=== PATIENT | female | born 1935 | race Caucasian/White ===

== ENCOUNTER → 2017-04-08 | Outpatient (CLI) | payer MEDICARE, OTHER ==
[2017-04-08 09:40] LABS: ALT 29 U/L (9-52); AST 15 U/L (14-36); Alkaline Phosphatase 62 U/L (38-126); Anion Gap 12 mmol/L; Blood Urea Nitrogen 21 mg/dL (7-17); Carbon Dioxide 30 mmol/L (22-30); Chloride 100 mmol/L (98-107); Cholesterol 155 mg/dL (<200); Glucose 138 mg/dL (74-99); HDL Cholesterol 48 mg/dL (40-60); Non-African American GFR(MDRD) 53 (>60 ml/min/1.73 sqM); Potassium 4.1 mmol/L (3.5-5.1); Sodium 142 mmol/L (137-145); Total Bilirubin 0.6 mg/dL (0.2-1.3); Total Protein 7.1 g/dL (6.3-8.2); Triglycerides 157 mg/dL (<150)
== END | disposition home or self-care (01) ==
LOC: LABWHC1 09:00
PROVIDERS: ATTEND Internal Medicine Endocrinology, Diabetes & Metabolism
DX: E11.65 Type 2 diabetes mellitus with hyperglycemia (principal); Z86.39 Personal history of other endocrine, nutritional and metabolic disease
CPT/HCPCS: 36415; 80053; 80061; 83970

== ENCOUNTER 2017-09-29 15:48 | Inpatient (IN) | payer MEDICARE, OTHER ==
[2017-09-29] MEDS ORDERED: IPRATROPIUM-ALBUTEROL 3 ML NEB INHALATION STA (15:58)
[2017-09-29] MEDS ORDERED: SODIUM CHLORIDE 0.9% 500 ML IV ONE (15:59)
[2017-09-29] MEDS ORDERED: ACETAMINOPHEN TAB 500 MG TAB PO STA (15:59)
--- NOTE | 2017-09-29 16:02 | ED ---
General Adult HPI - General Stated complaint: Flu symptoms Time Seen by Provider: 09/29/17 15:51 Source: patient, EMS, RN notes reviewed, old records reviewed - History of Present Illness Initial comments: 81-year-old female presents for evaluation of cough and dyspnea. Patient has had symptoms for approximately 2-3 days. She has had diffuse body aches and myalgias. Denies any abdominal pain. Denies chest pain. Patient has had rhinorrhea. Cough is dry in nature. Patient complains of fever and chills. She has had nausea and dry heaving, no significant vomiting. Past medical history diabetes, she states her blood sugar has been running high but she has not been able to eat anything for the past several days and has not taken her insulin. No history of COPD or heart failure. - Related Data Home Medications Medication Instructions Recorded Confirmed Alendronate Sodium [Fosamax] 70 mg PO MIJARES 09/29/17 09/29/17 Cholecalciferol [Vitamin D3] 1,000 unit PO DAILY 09/29/17 09/29/17 Hydrochlorothiazide [Hydrodiuril] 50 mg PO DAILY 09/29/17 09/29/17 Losartan [Cozaar] 50 mg PO DAILY 09/29/17 09/29/17 Metoprolol Tartrate [Lopressor] 50 mg PO DAILY 09/29/17 09/29/17 amLODIPine [Norvasc] 5 mg PO BID 09/29/17 09/29/17 Allergies Allergy/AdvReac Type Severity Reaction Status Date / Time codeine Allergy Rash/Hives Verified 09/29/17 17:18 Sulfa (Sulfonamide Allergy Rash/Hives Verified 09/29/17 17:18 Antibiotics) Review of Systems ROS Statement: Those systems with pertinent positive or pertinent negative responses have been documented in the HPI. ROS Other: All systems not noted in ROS Statement are negative. General Exam General appearance: alert, in no apparent distress Head exam: Present: atraumatic, normocephalic Eye exam: Present: normal appearance, PERRL ENT exam: Present: mucous membranes dry Neck exam: Present: normal inspection. Absent: tenderness, meningismus Respiratory exam: Present: wheezes. Absent: respiratory distress Cardiovascular Exam: Present: normal rhythm, tachycardia GI/Abdominal exam: Present: soft. Absent: distended, tenderness Extremities exam: Present: normal inspection, normal capillary refill. Absent: pedal edema Back exam: Present: normal inspection, full ROM. Absent: tenderness Neurological exam: Present: alert, oriented X3, CN II-XII intact. Absent: motor sensory deficit Psychiatric exam: Present: normal affect, normal mood Skin exam: Present: warm, dry, intact. Absent: cyanosis, diaphoretic Course Vital Signs 09/29/17 09/29/17 09/29/17 15:56 16:23 16:43 Temperature 102 F H Pulse Rate 113 H 108 H 100 Respiratory 27 H 28 H Rate Blood Pressure 168/104 O2 Sat by Pulse 94 L 97 Oximetry 09/29/17 09/29/17 16:57 17:48 Temperature 101.6 F H Pulse Rate 114 H 97 Respiratory 22 Rate Blood Pressure 157/78 O2 Sat by Pulse 98 Oximetry EKG Findings - EKG Comments: EKG Findings:: EKG shows sinus tachycardia with frequent PVCs, ventricular rate 107, OK interval 162, QRS duration 84, QTC 469, there is ST segment depression in V5 and V6 as well as T-wave inversion in V6. Medical Decision Making - Medical Decision Making 81-year-old female presenting with signs and symptoms consistent with influenza. Influenza testing is positive. EKG is obtained does show some ST segment depression and T-wave inversion in the lateral precordium. Patient is chest pain-free. She is not had any chest pain in the past several days. Laboratory studies reveal mild white blood cell count of 12.3, hemoglobin 13.1, creatinine 1.1, mild lactic acid of 2.8, troponin is 0.029, BNP 5180. Patient has no history of heart failure or CAD. EKG does show changes compared with EKG in August 2014. This is likely related to stress secondary to influenza. Chest x-ray shows mild pulmonary vascular congestion. Echo will be obtained, patient is started on heparin, serial troponins will be ordered. An cardiology will be placed on consult. Diagnosis: Influenza A, non-ST segment elevated AR, concern for new onset heart failure. - Lab Data Result diagrams: 09/29/17 16:23 09/29/17 16:23 Lab Results 09/29/17 09/29/17 09/29/17 Range/Units 16:23 16:23 16:23 WBC (3.8-10.6) k/uL RBC (3.80-5.40) m/uL Hgb (11.4-16.0) gm/dL Hct (34.0-46.0) % MCV (80.0-100.0) fL MCH (25.0-35.0) pg MCHC (31.0-37.0) g/dL RDW (11.5-15.5) % Plt Count (150-450) k/uL Neutrophils % % Lymphocytes % % Monocytes % % Eosinophils % % Basophils % % Neutrophils # (1.3-7.7) k/uL Lymphocytes # (1.0-4.8) k/uL Monocytes # (0-1.0) k/uL Eosinophils # (0-0.7) k/uL Basophils # (0-0.2) k/uL PT (9.0-12.0) sec INR (<1.2) APTT (22.0-30.0) sec Sodium (137-145) mmol/L Potassium (3.5-5.1) mmol/L Chloride (98-107) mmol/L Carbon Dioxide (22-30) mmol/L Anion Gap mmol/L BUN (7-17) mg/dL Creatinine (0.52-1.04) mg/dL Est GFR (MDRD) Af Amer (>60 ml/min/1.73 sqM) Est GFR (MDRD) Non-Af (>60 ml/min/1.73 sqM) Glucose (74-99) mg/dL Plasma Lactic Acid Tk 2.8 H* (0.7-2.0) mmol/L Calcium (8.4-10.2) mg/dL Magnesium (1.6-2.3) mg/dL Total Bilirubin (0.2-1.3) mg/dL AST (14-36) U/L ALT (9-52) U/L Alkaline Phosphatase (38-126) U/L Total Creatine Kinase 1312 H (30-135) U/L CK-MB (CK-2) 3.3 H* (0.0-2.4) ng/mL CK-MB (CK-2) Rel Index 0.3 Troponin I 0.029 (0.000-0.034) ng/mL NT-Pro-B Natriuret Pep pg/mL Total Protein (6.3-8.2) g/dL Albumin (3.5-5.0) g/dL Influenza Type A RNA Detected H (Not Detectd) Influenza Type B (PCR) Not Detected (Not Detectd) 09/29/17 09/29/17 09/29/17 Range/Units 16:23 16:23 16:23 WBC 12.3 H (3.8-10.6) k/uL RBC 4.70 (3.80-5.40) m/uL Hgb 13.1 (11.4-16.0) gm/dL Hct 40.7 (34.0-46.0) % MCV 86.7 (80.0-100.0) fL MCH 28.0 (25.0-35.0) pg MCHC 32.3 (31.0-37.0) g/dL RDW 14.8 (11.5-15.5) % Plt Count 334 (150-450) k/uL Neutrophils % 89 % Lymphocytes % 5 % Monocytes % 5 % Eosinophils % 1 % Basophils % 0 % Neutrophils # 11.0 H (1.3-7.7) k/uL Lymphocytes # 0.6 L (1.0-4.8) k/uL Monocytes # 0.6 (0-1.0) k/uL Eosinophils # 0.1 (0-0.7) k/uL Basophils # 0.0 (0-0.2) k/uL PT (9.0-12.0) sec INR (<1.2) APTT (22.0-30.0) sec Sodium 133 L (137-145) mmol/L Potassium 4.1 (3.5-5.1) mmol/L Chloride 96 L (98-107) mmol/L Carbon Dioxide 23 (22-30) mmol/L Anion Gap 14 mmol/L BUN 26 H (7-17) mg/dL Creatinine 1.10 H (0.52-1.04) mg/dL Est GFR (MDRD) Af Amer 58 (>60 ml/min/1.73 sqM) Est GFR (MDRD) Non-Af 48 (>60 ml/min/1.73 sqM) Glucose 328 H (74-99) mg/dL Plasma Lactic Acid Tk (0.7-2.0) mmol/L Calcium 9.4 (8.4-10.2) mg/dL Magnesium 1.9 (1.6-2.3) mg/dL Total Bilirubin 0.5 (0.2-1.3) mg/dL AST 44 H (14-36) U/L ALT 28 (9-52) U/L Alkaline Phosphatase 63 (38-126) U/L Total Creatine Kinase (30-135) U/L CK-MB (CK-2) (0.0-2.4) ng/mL CK-MB (CK-2) Rel Index Troponin I (0.000-0.034) ng/mL NT-Pro-B Natriuret Pep 5180 pg/mL Total Protein 7.1 (6.3-8.2) g/dL Albumin 3.9 (3.5-5.0) g/dL Influenza Type A RNA (Not Detectd) Influenza Type B (PCR) (Not Detectd) 09/29/17 Range/Units 16:23 WBC (3.8-10.6) k/uL RBC (3.80-5.40) m/uL Hgb (11.4-16.0) gm/dL Hct (34.0-46.0) % MCV (80.0-100.0) fL MCH (25.0-35.0) pg MCHC (31.0-37.0) g/dL RDW (11.5-15.5) % Plt Count (150-450) k/uL Neutrophils % % Lymphocytes % % Monocytes % % Eosinophils % % Basophils % % Neutrophils # (1.3-7.7) k/uL Lymphocytes # (1.0-4.8) k/uL Monocytes # (0-1.0) k/uL Eosinophils # (0-0.7) k/uL Basophils # (0-0.2) k/uL PT 10.3 (9.0-12.0) sec INR 1.1 (<1.2) APTT 22.1 (22.0-30.0) sec Sodium (137-145) mmol/L Potassium (3.5-5.1) mmol/L Chloride (98-107) mmol/L Carbon Dioxide (22-30) mmol/L Anion Gap mmol/L BUN (7-17) mg/dL Creatinine (0.52-1.04) mg/dL Est GFR (MDRD) Af Amer (>60 ml/min/1.73 sqM) Est GFR (MDRD) Non-Af (>60 ml/min/1.73 sqM) Glucose (74-99) mg/dL Plasma Lactic Acid Tk (0.7-2.0) mmol/L Calcium (8.4-10.2) mg/dL Magnesium (1.6-2.3) mg/dL Total Bilirubin (0.2-1.3) mg/dL AST (14-36) U/L ALT (9-52) U/L Alkaline Phosphatase (38-126) U/L Total Creatine Kinase (30-135) U/L CK-MB (CK-2) (0.0-2.4) ng/mL CK-MB (CK-2) Rel Index Troponin I (0.000-0.034) ng/mL NT-Pro-B Natriuret Pep pg/mL Total Protein (6.3-8.2) g/dL Albumin (3.5-5.0) g/dL Influenza Type A RNA (Not Detectd) Influenza Type B (PCR) (Not Detectd) Critical Care Time Critical Care Time: Yes Total Critical Care Time: 35 Disposition Clinical Impression: Congestive heart failure, NSTEMI (non-ST elevated myocardial infarction), Influenza A Disposition: ADMITTED IP TO THIS [facility] Condition: Serious Referrals: Marylou Flynn MD [Primary Care Provider] - 1-2 days Decision to Admit Reason: Admit from EC Decision Date: 09/29/17 Decision Time: 18:02
[2017-09-29 16:36] LABS: Basophils % (A) 0 %; Eosinophils # (A) 0.1 k/uL (0-0.7); Eosinophils % (A) 1 %; HCT 40.7 % (34.0-46.0); HGB 13.1 gm/dL (11.4-16.0); Lymphocytes # (A) 0.6 k/uL (1.0-4.8); Lymphocytes % (A) 5 %; MCHC 32.3 g/dL (31.0-37.0); MCV 86.7 fL (80.0-100.0); Mean Platelet Volume 7.8; Monocytes # (A) 0.6 k/uL (0-1.0); Monocytes % (A) 5 %; Neutrophils % (A) 89 %; Platelet Count 334 k/uL (150-450); RDW 14.8 % (11.5-15.5); WBC 12.3 k/uL (3.8-10.6)
[2017-09-29 16:48] LABS: INR 1.1 (<1.2); Partial Thromboplastin Time 22.1 sec (22.0-30.0); Prothrombin Time 10.3 sec (9.0-12.0)
--- NOTE | 2017-09-29 16:48 | XR ---
EXAMINATION TYPE: XR chest 2V DATE OF EXAM: 09/29/2017 COMPARISON: 07/27/2010 HISTORY: Difficulty breathing TECHNIQUE: Frontal and lateral views of the chest are obtained. FINDINGS: There is mild pulmonary vascular congestion most pronounced centrally within the infrahila r regions and perihilar regions on the lateral image. Cardiomediastinal silhouette is enlarged. No pl eural effusions, focal consolidation or pneumothorax. Postsurgical changes of the right acromioclavic ular joint are noted. Mild multilevel degenerative disc disease of the thoracic spine. IMPRESSION: Mild pulmonary vascular congestion most prominent centrally may represent cardiogenic or noncardiogenic fluid overload.
[2017-09-29 16:51] LABS: Albumin 3.9 g/dL (3.5-5.0); Calcium 9.4 mg/dL (8.4-10.2); Magnesium 1.9 mg/dL (1.6-2.3); Potassium 4.1 mmol/L (3.5-5.1); Total Bilirubin 0.5 mg/dL (0.2-1.3); Total Protein 7.1 g/dL (6.3-8.2)
[2017-09-29 17:08] LABS: Troponin I 0.029 ng/mL (0.000-0.034)
[2017-09-29 17:13] LABS: Creatine Kinase MB 3.3 ng/mL (0.0-2.4)
[2017-09-29] MEDS ORDERED: ASPIRIN 325 MG TAB PO STA ×2 (17:26→17:59)
[2017-09-29] MEDS ORDERED: FUROSEMIDE 10 MG/ML 2 ML VIAL IV ONE (17:26)
[2017-09-29] MEDS ORDERED: HEPARIN SODIUM,PORCINE 5,000 UNIT/ML 1 ML VIAL IV PRN (17:29)
[2017-09-29] MEDS ORDERED: HEPARIN SODIUM,PORCINE 5,000 UNIT/ML 1 ML VIAL IV ONE (17:29)
[2017-09-29] MEDS ORDERED: HEPARIN SOD,PORK IN 0.45% NACL 25,000 UNIT in 0.45% NACL 1 500ML.BAG IV SCH (17:30)
[2017-09-29] MEDS ORDERED: ACETAMINOPHEN TAB 325 MG TAB PO PRN (17:57)
[2017-09-29] MEDS ORDERED: NALOXONE 0.4 MG/ML 1 ML VIAL IV PRN (17:57)
[2017-09-29] MEDS ORDERED: OSELTAMIVIR 75 MG CAP PO ONE (18:00)
[2017-09-29 21:53] LABS: Glucose,Whole Blood 391 mg/dL (75-99)
[2017-09-29] MEDS: INSULIN DETEMIR 100 UNIT/ML 10 ML VIAL SQ SCH (23:04)
[2017-09-29] MEDS ORDERED: INSULIN ASPART 100 UNIT/ML 1 ML 10 ML VIAL SQ ONE (23:44)
[2017-09-29] MEDS ORDERED: ONDANSETRON 4 MG/2 ML VIAL IVP PRN (23:45)
[2017-09-30 00:05] LABS: Glucose,Whole Blood 337 mg/dL (75-99)
[2017-09-30 00:07] LABS: Creatine Kinase MB 3.8 ng/mL (0.0-2.4)
[2017-09-30 00:08] LABS: Troponin I 0.045 ng/mL (0.000-0.034)
[2017-09-30 01:58] LABS: Glucose,Whole Blood 278 mg/dL (75-99)
[2017-09-30 06:13] LABS: Basophils % (A) 0 %; Eosinophils % (A) 0 %; HGB 12.5 gm/dL (11.4-16.0); Lymphocytes # (A) 0.7 k/uL (1.0-4.8); Lymphocytes % (A) 6 %; MCH 27.6 pg (25.0-35.0); MCHC 31.2 g/dL (31.0-37.0); MCV 88.4 fL (80.0-100.0); Mean Platelet Volume 7.4; Monocytes # (A) 0.6 k/uL (0-1.0); Monocytes % (A) 5 %; Neutrophils # (A) 10.4 k/uL (1.3-7.7); Neutrophils % (A) 88 %; Platelet Count 301 k/uL (150-450); RBC 4.52 m/uL (3.80-5.40); RDW 15.1 % (11.5-15.5); WBC 11.8 k/uL (3.8-10.6)
[2017-09-30] MEDS ORDERED: IPRATROPIUM-ALBUTEROL 3 ML NEB INHALATION PRN (06:13)
[2017-09-30] MEDS: IPRATROPIUM-ALBUTEROL 3 ML NEB INHALATION SCH ×4 (06:21→20:15)
[2017-09-30 06:36] LABS: ALT 30 U/L (9-52); AST 60 U/L (14-36); Albumin 3.4 g/dL (3.5-5.0); Alkaline Phosphatase 55 U/L (38-126); Anion Gap 10 mmol/L; Blood Urea Nitrogen 28 mg/dL (7-17); Calcium 9.6 mg/dL (8.4-10.2); Carbon Dioxide 26 mmol/L (22-30); Chloride 102 mmol/L (98-107); Glucose 136 mg/dL (74-99); Potassium 3.7 mmol/L (3.5-5.1); Sodium 138 mmol/L (137-145); Total Bilirubin 0.4 mg/dL (0.2-1.3); Total Protein 6.3 g/dL (6.3-8.2)
[2017-09-30 07:07] LABS: Creatine Kinase MB 5.3 ng/mL (0.0-2.4); Troponin I 0.049 ng/mL (0.000-0.034)
[2017-09-30] MEDS ORDERED: INSULIN ASPART 100 UNIT/ML 1 ML 10 ML VIAL SQ SCH (07:30)
[2017-09-30 07:48] LABS: Glucose,Whole Blood 139 mg/dL (75-99)
[2017-09-30] MEDS: INSULIN ASPART 100 UNIT/ML 1 ML 10 ML VIAL SQ SCH ×7 (08:53→22:20)
[2017-09-30] MEDS: INSULIN DETEMIR 100 UNIT/ML 10 ML VIAL SQ SCH ×2 (08:58→22:20)
[2017-09-30] MEDS ORDERED: METOPROLOL TARTRATE 50 MG TAB PO SCH (09:00)
[2017-09-30] MEDS ORDERED: OSELTAMIVIR 75 MG CAP PO SCH (09:00)
[2017-09-30] MEDS ORDERED: INSULIN DETEMIR 100 UNIT/ML 10 ML VIAL SQ SCH (09:00)
[2017-09-30] MEDS ORDERED: FUROSEMIDE 10 MG/ML 2 ML VIAL IV ONE (09:30)
--- NOTE | 2017-09-30 09:46 | CONS ---
CONSULTATION Mrs. Gomes is an 81-year-old female who is followed by Dr. Flynn. She has a history of hypertension, diabetes who presented with symptoms of progressive dyspnea and cough. Her symptoms started 3 days ago with cough, fever and chills at home. Came into the emergency room because of the persistent symptoms. A cardiology consultation was requested because of mild troponin elevation. She had chest discomfort, but the discomfort was respirophasic. She had fever and chills. No significant peripheral edema. No PND or orthopnea. She has occasional dizziness. No palpitation. No syncope. She has no prior cardiac history. She has no history of recent cardiac workup. Her coronary risk factors are remarkable for history of hypertension and diabetes. She is a nonsmoker. Her medications at home included insulin, amlodipine 5 mg twice a day, metoprolol tartrate 50 mg daily, Cozaar 50 mg daily, hydrochlorothiazide 50 mg daily, Vitamin D and Fosamax. REVIEW OF SYSTEMS: RESPIRATORY SYSTEM: She had a recent cough, the dyspnea, the fever. GI SYSTEM: No recent GI bleeding. No peptic ulcer disease. SYSTEM: No dysuria or hematuria. NERVOUS SYSTEM: No history of stroke or seizure. PHYSICAL EXAMINATION: Her blood pressure running in the one teens to 160 with the heart rate in the 90s. Temperature of 102 on admission. HEAD: Normocephalic. EYES: Sclerae anicteric. NECK: Good carotid upstroke. No bruit. LUNGS: With diffuse wheezes and crackles bilaterally. HEART: Regular rate and rhythm, S1, S2. No S3, no rub appreciated. No murmur. ABDOMEN: Soft, obese, nontender. Positive bowel sounds. No organomegaly. EXTREMITIES: No edema, +1 distal pulses. LAB DATA: Lab data revealed a troponin of 0.029, 0.045, 0.049. Plasma lactic acid 2.8 on presentation. BUN and creatinine 26 and 1.1. Potassium 4.1. NT proBNP of 5180. Hemoglobin of 13.1, white blood cell of 12.3 on admission. EKG shows sinus mechanism, rate of 107, occasional PVCs, nonspecific ST-T wave changes on the lower leads. Influenza A detected. IMPRESSION: 1. Respiratory infection with influenza. 2. Minimal elevation of troponin representing a type 2 event. 3. History of hypertension. 4. Hyperlipidemia. RECOMMENDATION: From the cardiac standpoint, I will restart her beta elham as well as her losartan hydrochlorothiazide. I will add to her regimen atorvastatin and daily dose of aspirin. We will give her 1 dose of intravenous Lasix for possible congestion. I will obtain echocardiogram with Doppler. I will stop her heparin. I do not see any evidence to suggest acute ischemic event at this point. Thank you for this consult. We will follow with you. RAMÍREZ / FRANSICON: [id number] /
--- NOTE | 2017-09-30 10:23 | ECHOF ---
Referral Reason:chf MEASUREMENTS -------- HEIGHT: 152.4 cm WEIGHT: 104.8 kg BP: 118/60 RVIDd: 2.7 cm (< 3.3) IVSd: 1.2 cm (0.6 - 1.1) LVIDd: 3.9 cm (3.9 - 5.3) LVPWd: 1.2 cm (0.6 - 1.1) IVSs: 1.5 cm LVIDs: 3.2 cm LVPWs: 1.3 cm LA Diam: 3.7 cm (2.7 - 3.8) LAESV Index (A-L): 30.66 ml/m Ao Diam: 2.8 cm (2.0 - 3.7) AV Cusp: 1.9 cm (1.5 - 2.6) MV EXCURSION: 14.577 mm (> 18.000) MV EF SLOPE: 35 mm/s (70 - 150) EPSS: 0.6 cm MV E Karson: 1.15 m/s MV DecT: 328 ms MV A Karson: 1.07 m/s MV E/A Ratio: 1.08 AV maxP.41 mmHg AV meanP.46 mmHg RAP: 5.00 mmHg RVSP: 19.78 mmHg FINDINGS -------- Sinus rhythm with extra systolic beats. This was a technically adequate study. The left ventricular size is normal. There is borderline concentric left ventricular hypertrophy. Overall left ventricular systolic function is normal with, an EF between 55 - 60 %. The right ventricle is normal in size. LA is midly dilated 29-33ml/m2. The right atrium is normal in size. There is mild aortic valve sclerosis. Trace to mild aortic regurgitation. There is mild aortic st enosis present. Peak/mean gradient across the Aortic Valve is 17.41mmHg / 8.46mmHg. The mitral valve leaflets are mildly thickened. Mild mitral annular calcification present. There is trace mitral regurgitation. Trace tricuspid regurgitation present. Right ventricular systolic pressure is normal at < 35 mmHg. The pulmonic valve was not well visualized. The aortic root size is normal. Normal inferior vena cava with normal inspiratory collapse consistent with estimated right atrial pre ssure of 5 mmHg. There is no pericardial effusion. CONCLUSIONS -------- 1. Sinus rhythm with extra systolic beats. 2. This was a technically adequate study. 3. The left ventricular size is normal. 4. There is borderline concentric left ventricular hypertrophy. 5. Overall left ventricular systolic function is normal with, an EF between 55 - 60 %. 6. The right ventricle is normal in size. 7. LA is midly dilated 29-33ml/m2. 8. The right atrium is normal in size. 9. There is mild aortic valve sclerosis. 10. Trace to mild aortic regurgitation. 11. There is mild aortic stenosis present. 12. Peak/mean gradient across the Aortic Valve is 17.41mmHg / 8.46mmHg. 13. The mitral valve leaflets are mildly thickened. 14. Mild mitral annular calcification present. 15. There is trace mitral regurgitation. 16. Trace tricuspid regurgitation present. 17. Right ventricular systolic pressure is normal at < 35 mmHg. 18. The pulmonic valve was not well visualized. 19. The aortic root size is normal. 20. Normal inferior vena cava with normal inspiratory collapse consistent with estimated right atrial pressure of 5 mmHg. 21. There is no pericardial effusion. FLAT SCREEN WORKER: Harmony Avery RDCS
[2017-09-30] MEDS: ATORVASTATIN 40 MG TAB PO SCH (10:32)
[2017-09-30] MEDS: ASPIRIN 81 MG PO SCH (10:32)
[2017-09-30 12:16] LABS: Glucose,Whole Blood 93 mg/dL (75-99)
--- NOTE | 2017-09-30 15:28 | P.HPIM ---
History of Present Illness 81-year-old female presents for evaluation of cough and dyspnea. Patient has had symptoms for approximately 2-3 days. She has had diffuse body aches and myalgias. Denies any abdominal pain. Denies chest pain. Patient has had rhinorrhea. Cough is dry in nature. Patient complains of fever and chills. She has had nausea and dry heaving, no significant vomiting. Past medical history diabetes, she states her blood sugar has been running high but she has not been able to eat anything for the past several days and has not taken her insulin. No history of COPD or heart failure. Patient is found to have influenza for which patient was started on Tamiflu, chest x-ray showing diffuse infiltrate probably secondary to noncardiogenic pulmonary edema and inflammatory reaction to influenza a cardiogram showed normal ejection fraction and collapsible IVC. Patient was given a dose of Lasix from cardiology perspective patient is minimally elevated troponin secondary to sepsis from influenza no further cardiac intervention is being contemplated her anticipated at this time. Patient will be transferred out of ICU will not need IV heparin. Patient will be monitored overnight if she is feeling better patient will be discharged tomorrow. Patient has a constant 5-6 but and chest pain is noncardiac not associated with nausea, diaphoresis patient does have significant generalized body aches Review of Systems REVIEW OF SYSTEMS: CONSTITUTIONAL: No fever, no malaise, no fatigue. HEENT: No recent visual problems or hearing problems. Denied any sore throat. CARDIOVASCULAR: No orthopnea, PND, no palpitations, no syncope. PULMONARY: No shortness of breath, no cough, no hemoptysis. GASTROINTESTINAL: No diarrhea, no nausea, no vomiting, no abdominal pain. Normoactive bowel sounds. NEUROLOGICAL: No headaches, no weakness, no numbness. HEMATOLOGICAL: Denies any bleeding or petechiae. GENITOURINARY: Denies any burning micturition, frequency, or urgency. MUSCULOSKELETAL/RHEUMATOLOGICAL: Denies any joint pain, swelling, or any muscle pain. ENDOCRINE: Denies any polyuria or polydipsia. The rest of the 14-point review of systems is negative. Past Medical History Past Medical History: Diabetes Mellitus, Hyperlipidemia, Hypertension History of Any Multi-Drug Resistant Organisms: None Reported Past Surgical History: Appendectomy, Hysterectomy Past Anesthesia/Blood Transfusion Reactions: No Reported Reaction Past Psychological History: No Psychological Hx Reported Smoking Status: Never smoker Past Alcohol Use History: None Reported Past Drug Use History: None Reported Medications and Allergies Home Medications Medication Instructions Recorded Confirmed Type Alendronate Sodium [Fosamax] 70 mg PO MIJARES 09/29/17 09/29/17 History Cholecalciferol [Vitamin D3] 1,000 unit PO DAILY 09/29/17 09/29/17 History Hydrochlorothiazide [Hydrodiuril] 50 mg PO DAILY 09/29/17 09/29/17 History INSULIN LISPRO (humaLOG) [humaLOG] 16 - 20 units SQ AC-TID 09/29/17 09/29/17 History Insulin Detemir [Levemir] 42 unit SQ BID 09/29/17 09/29/17 History Losartan [Cozaar] 50 mg PO DAILY 09/29/17 09/29/17 History Metoprolol Tartrate [Lopressor] 50 mg PO DAILY 09/29/17 09/29/17 History amLODIPine [Norvasc] 5 mg PO BID 09/29/17 09/29/17 History Allergies Allergy/AdvReac Type Severity Reaction Status Date / Time codeine Allergy Rash/Hives Verified 09/29/17 17:18 Sulfa (Sulfonamide Allergy Rash/Hives Verified 09/29/17 17:18 Antibiotics) Physical Exam Vitals: Vital Signs Temp Pulse Pulse Resp BP BP Pulse Ox 09/30/17 12:09 75 09/30/17 11:55 68 94 L 09/30/17 10:00 67 121/53 92 L 09/30/17 09:00 89 121/53 95 09/30/17 08:00 98.5 F 93 85 18 118/60 92 L 09/30/17 07:00 99 135/61 92 L 09/30/17 06:31 99 09/30/17 06:21 106 H 09/30/17 06:00 111 H 164/76 91 L 09/30/17 05:00 100 154/68 93 L 09/30/17 04:00 116 H 163/64 92 L 09/30/17 03:57 85 18 09/30/17 03:00 102 H 152/53 91 L 09/30/17 02:00 77 138/52 93 L 09/30/17 01:00 82 141/58 93 L 09/30/17 00:00 83 85 124/63 93 L 09/29/17 23:00 98.6 F 95 115/56 95 09/29/17 22:17 111 H 09/29/17 21:48 98.2 F 89 18 146/69 97 09/29/17 20:53 98.4 F 104 H 18 141/81 96 09/29/17 19:48 99.1 F 90 14 127/60 94 L 09/29/17 19:00 100.9 F H 100 22 139/65 95 09/29/17 18:07 98.6 F 103 H 89 12 129/58 115/56 95 09/29/17 17:48 101.6 F H 97 22 157/78 98 09/29/17 16:57 114 H 09/29/17 16:43 100 09/29/17 16:23 108 H 28 H 97 09/29/17 15:56 102 F H 113 H 27 H 168/104 94 L Intake and Output 09/30/17 09/30/17 09/30/17 06:59 14:59 22:59 Intake Total 130 Balance 130 Intake: Intake, IV Titration 130 Amount Heparin Sod,Pork in 0.45% 130 NaCl 25,000 unit In 0.45 % NaCl 1 500ml.bag @ 10. 02 UNITS/KG/HR 19.99 mls/ hr IV .Q24H [facility] Rx#: [id number] Other: # Voids 2 Weight 105 kg 105 kg Patient Weight 10/01/17 06:59 Weight 105 kg PHYSICAL EXAMINATION: GENERAL: The patient is alert and oriented x3, not in any acute distress. Well developed, well nourished. HEENT: Pupils are round and equally reacting to light. EOMI. No scleral icterus. No conjunctival pallor. Normocephalic, atraumatic. No pharyngeal erythema. No thyromegaly. CARDIOVASCULAR: S1 and S2 present. No murmurs, rubs, or gallops. PULMONARY: Chest is clear to auscultation, no wheezing is bilateral crackles no JVD ABDOMEN: Soft, nontender, nondistended, normoactive bowel sounds. No palpable organomegaly. MUSCULOSKELETAL: No joint swelling or deformity. EXTREMITIES: No cyanosis, clubbing, or pedal edema. NEUROLOGICAL: Gross neurological examination did not reveal any focal deficits. SKIN: No rashes. Results CBC & Chem 7: 09/30/17 05:28 09/30/17 05:28 Labs: Abnormal Lab Results - Last 24 Hours (Table) 09/29/17 09/29/17 09/29/17 Range/Units 16:23 16:23 16:23 WBC (3.8-10.6) k/uL Neutrophils # (1.3-7.7) k/uL Lymphocytes # (1.0-4.8) k/uL APTT (22.0-30.0) sec Sodium (137-145) mmol/L Chloride (98-107) mmol/L BUN (7-17) mg/dL Creatinine (0.52-1.04) mg/dL Glucose (74-99) mg/dL POC Glucose (mg/dL) (75-99) mg/dL Plasma Lactic Acid Tk 2.8 H* (0.7-2.0) mmol/L AST (14-36) U/L Total Creatine Kinase 1312 H (30-135) U/L CK-MB (CK-2) 3.3 H* (0.0-2.4) ng/mL Troponin I (0.000-0.034) ng/mL Albumin (3.5-5.0) g/dL Influenza Type A RNA Detected H (Not Detectd) 09/29/17 09/29/17 09/29/17 Range/Units 16:23 16:23 21:15 WBC 12.3 H (3.8-10.6) k/uL Neutrophils # 11.0 H (1.3-7.7) k/uL Lymphocytes # 0.6 L (1.0-4.8) k/uL APTT (22.0-30.0) sec Sodium 133 L (137-145) mmol/L Chloride 96 L (98-107) mmol/L BUN 26 H (7-17) mg/dL Creatinine 1.10 H (0.52-1.04) mg/dL Glucose 328 H (74-99) mg/dL POC Glucose (mg/dL) (75-99) mg/dL Plasma Lactic Acid Tk 2.4 H* (0.7-2.0) mmol/L AST 44 H (14-36) U/L Total Creatine Kinase (30-135) U/L CK-MB (CK-2) (0.0-2.4) ng/mL Troponin I (0.000-0.034) ng/mL Albumin (3.5-5.0) g/dL Influenza Type A RNA (Not Detectd) 09/29/17 09/29/17 09/29/17 Range/Units 21:51 23:08 23:08 WBC (3.8-10.6) k/uL Neutrophils # (1.3-7.7) k/uL Lymphocytes # (1.0-4.8) k/uL APTT 33.7 H (22.0-30.0) sec Sodium (137-145) mmol/L Chloride (98-107) mmol/L BUN (7-17) mg/dL Creatinine (0.52-1.04) mg/dL Glucose (74-99) mg/dL POC Glucose (mg/dL) 391 H (75-99) mg/dL Plasma Lactic Acid Tk (0.7-2.0) mmol/L AST (14-36) U/L Total Creatine Kinase 1260 H (30-135) U/L CK-MB (CK-2) 3.8 H* (0.0-2.4) ng/mL Troponin I 0.045 H* (0.000-0.034) ng/mL Albumin (3.5-5.0) g/dL Influenza Type A RNA (Not Detectd) 09/30/17 09/30/17 09/30/17 Range/Units 00:03 01:53 05:28 WBC 11.8 H (3.8-10.6) k/uL Neutrophils # 10.4 H (1.3-7.7) k/uL Lymphocytes # 0.7 L (1.0-4.8) k/uL APTT (22.0-30.0) sec Sodium (137-145) mmol/L Chloride (98-107) mmol/L BUN (7-17) mg/dL Creatinine (0.52-1.04) mg/dL Glucose (74-99) mg/dL POC Glucose (mg/dL) 337 H 278 H (75-99) mg/dL Plasma Lactic Acid Tk (0.7-2.0) mmol/L AST (14-36) U/L Total Creatine Kinase (30-135) U/L CK-MB (CK-2) (0.0-2.4) ng/mL Troponin I (0.000-0.034) ng/mL Albumin (3.5-5.0) g/dL Influenza Type A RNA (Not Detectd) 09/30/17 09/30/17 09/30/17 Range/Units 05:28 05:28 05:28 WBC (3.8-10.6) k/uL Neutrophils # (1.3-7.7) k/uL Lymphocytes # (1.0-4.8) k/uL APTT 52.0 H (22.0-30.0) sec Sodium (137-145) mmol/L Chloride (98-107) mmol/L BUN 28 H (7-17) mg/dL Creatinine (0.52-1.04) mg/dL Glucose 136 H (74-99) mg/dL POC Glucose (mg/dL) (75-99) mg/dL Plasma Lactic Acid Tk (0.7-2.0) mmol/L AST 60 H (14-36) U/L Total Creatine Kinase 1456 H (30-135) U/L CK-MB (CK-2) 5.3 H* (0.0-2.4) ng/mL Troponin I 0.049 H* (0.000-0.034) ng/mL Albumin 3.4 L (3.5-5.0) g/dL Influenza Type A RNA (Not Detectd) 09/30/17 Range/Units 07:47 WBC (3.8-10.6) k/uL Neutrophils # (1.3-7.7) k/uL Lymphocytes # (1.0-4.8) k/uL APTT (22.0-30.0) sec Sodium (137-145) mmol/L Chloride (98-107) mmol/L BUN (7-17) mg/dL Creatinine (0.52-1.04) mg/dL Glucose (74-99) mg/dL POC Glucose (mg/dL) 139 H (75-99) mg/dL Plasma Lactic Acid Tk (0.7-2.0) mmol/L AST (14-36) U/L Total Creatine Kinase (30-135) U/L CK-MB (CK-2) (0.0-2.4) ng/mL Troponin I (0.000-0.034) ng/mL Albumin (3.5-5.0) g/dL Influenza Type A RNA (Not Detectd) Thrombosis Risk Factor Assmnt - Choose All That Apply Any of the Below Risk Factors Present?: Yes Each Factor Represents 1 point: Heart failure (<1month), Obesity (BMI >25) Other Risk Factors: No Other congenital or acquired thrombophilia - If yes, enter type in comment: No Thrombosis Risk Factor Assessment Total Risk Factor Score: 2 Thrombosis Risk Factor Assessment Level: Low Risk Assessment and Plan Plan: -Sepsis secondary to influenza A lung infection., Patient is in Tamiflu is pretty support transfer out of ICU to [facility] floor with telemetry. -Elevated troponin: Secondary to sepsis minimal elevation noncardiac in origin. -Chest pain part of her myalgias noncardiac in nature. -Type 2 diabetes mellitus uncontrolled blood sugars will continue with her present regimen along with sliding scale monitor blood sugars titrate accordingly. -Shortness of breath: Secondary to influenza pneumonia. -Hypertension, resume her home medications. -Ruled out congestive heart failure -Hyperlipidemia continue with his statin.
[2017-09-30 17:11] LABS: Glucose,Whole Blood 80 mg/dL (75-99)
[2017-09-30 20:49] LABS: Glucose,Whole Blood 172 mg/dL (75-99)
[2017-09-30] MEDS: METOPROLOL TARTRATE 50 MG TAB PO SCH (22:21)
[2017-09-30] MEDS: OSELTAMIVIR 60 MG/10 ML ORAL SYRINGE PO SCH (22:22)
[2017-10-01 02:01] LABS: Glucose,Whole Blood 65 mg/dL (75-99)
[2017-10-01 02:30] LABS: Glucose,Whole Blood 78 mg/dL (75-99)
[2017-10-01 07:17] LABS: Basophils % (A) 1 %; Eosinophils % (A) 0 %; HCT 33.4 % (34.0-46.0); HGB 10.9 gm/dL (11.4-16.0); Lymphocytes # (A) 0.7 k/uL (1.0-4.8); Lymphocytes % (A) 14 %; MCH 28.2 pg (25.0-35.0); MCHC 32.7 g/dL (31.0-37.0); MCV 86.2 fL (80.0-100.0); Mean Platelet Volume 8.1; Monocytes # (A) 0.4 k/uL (0-1.0); Monocytes % (A) 7 %; Neutrophils % (A) 77 %; Platelet Count 274 k/uL (150-450); RBC 3.88 m/uL (3.80-5.40); RDW 14.6 % (11.5-15.5); WBC 5.1 k/uL (3.8-10.6)
[2017-10-01 07:30] LABS: Glucose,Whole Blood 58 mg/dL (75-99)
[2017-10-01 07:41] LABS: Anion Gap 9 mmol/L; Blood Urea Nitrogen 29 mg/dL (7-17); Calcium 8.5 mg/dL (8.4-10.2); Carbon Dioxide 26 mmol/L (22-30); Chloride 101 mmol/L (98-107); Glucose 60 mg/dL (74-99); Sodium 136 mmol/L (137-145)
[2017-10-01 07:46] LABS: Glucose,Whole Blood 74 mg/dL (75-99)
[2017-10-01] MEDS: INSULIN ASPART 100 UNIT/ML 1 ML 10 ML VIAL SQ SCH ×7 (07:55→21:20)
[2017-10-01] MEDS: HYDROCHLOROTHIAZIDE 25 MG TAB PO SCH (07:56)
[2017-10-01] MEDS: METOPROLOL TARTRATE 50 MG TAB PO SCH ×2 (07:56→21:18)
[2017-10-01] MEDS: LOSARTAN 50 MG TAB PO SCH (07:56)
[2017-10-01] MEDS: ASPIRIN 81 MG PO SCH (07:56)
[2017-10-01] MEDS: ATORVASTATIN 40 MG TAB PO SCH (07:57)
[2017-10-01] MEDS: IPRATROPIUM-ALBUTEROL 3 ML NEB INHALATION SCH ×4 (09:05→20:31)
[2017-10-01] MEDS: INSULIN DETEMIR 100 UNIT/ML 10 ML VIAL SQ SCH ×3 (10:18→21:21)
[2017-10-01] MEDS: OSELTAMIVIR 60 MG/10 ML ORAL SYRINGE PO SCH ×2 (10:48→23:12)
[2017-10-01 11:45] LABS: Glucose,Whole Blood 157 mg/dL (75-99)
[2017-10-01 17:09] LABS: Glucose,Whole Blood 123 mg/dL (75-99)
--- NOTE | 2017-10-01 18:11 | P.PN ---
Subjective Progress Note Date: 10/01/17 Progress note being dictated for Dr. Rodríguez interval history:81-year-old female presents for evaluation of cough and dyspnea. Patient has had symptoms for approximately 2-3 days. She has had diffuse body aches and myalgias. Denies any abdominal pain. Denies chest pain. Patient has had rhinorrhea. Cough is dry in nature. Patient complains of fever and chills. She has had nausea and dry heaving, no significant vomiting. Past medical history diabetes, she states her blood sugar has been running high but she has not been able to eat anything for the past several days and has not taken her insulin. No history of COPD or heart failure. Patient is found to have influenza for which patient was started on Tamiflu, chest x-ray showing diffuse infiltrate probably secondary to noncardiogenic pulmonary edema and inflammatory reaction to influenza a cardiogram showed normal ejection fraction and collapsible IVC. Patient was given a dose of Lasix from cardiology perspective patient is minimally elevated troponin secondary to sepsis from influenza no further cardiac intervention is being contemplated her anticipated at this time. Patient will be transferred out of ICU will not need IV heparin. Patient will be monitored overnight if she is feeling better patient will be discharged tomorrow. Patient has a constant 5-6 but and chest pain is noncardiac not associated with nausea, diaphoresis patient does have significant generalized body aches Review of Systems REVIEW OF SYSTEMS: CONSTITUTIONAL: No fever, no malaise, no fatigue. HEENT: No recent visual problems or hearing problems. Denied any sore throat. CARDIOVASCULAR: No orthopnea, PND, no palpitations, no syncope. PULMONARY: No shortness of breath, no cough, no hemoptysis. GASTROINTESTINAL: No diarrhea, no nausea, no vomiting, no abdominal pain. Normoactive bowel sounds. NEUROLOGICAL: No headaches, no weakness, no numbness. HEMATOLOGICAL: Denies any bleeding or petechiae. GENITOURINARY: Denies any burning micturition, frequency, or urgency. MUSCULOSKELETAL/RHEUMATOLOGICAL: Denies any joint pain, swelling, or any muscle pain. ENDOCRINE: Denies any polyuria or polydipsia. The rest of the 14-point review of systems is negative. 10/01/2017 Feels tired, ambulating within room to BR, strength and breathing improving. Good diet intake consuming 50-75% with no nausea vomiting or diarrhea.afebrile, T-max 100.3.preliminary cultures negative at 24 hours.denies chest pain, palpitations or increasing shortness of breath. Objective - Vital Signs Vital signs: Vital Signs Temp 98.5 F 10/01/17 15:00 Pulse 78 10/01/17 16:45 Resp 18 10/01/17 15:00 BP 118/53 10/01/17 15:00 Pulse Ox 93 L 10/01/17 15:00 Intake & Output 09/30/17 10/01/17 10/01/17 18:59 06:59 18:59 Weight 105 kg 105.1 kg 105.1 kg Other: # Voids 1 2 - Exam GENERAL: The patient is alert and oriented x3, no acute distress, tired appearing HEENT: Pupils are round and equally reacting to light. EOMI. No scleral icterus. No conjunctival pallor. Normocephalic, atraumatic. No pharyngeal erythema. No thyromegaly. CARDIOVASCULAR: S1 and S2 present. No murmurs, rubs, or gallops. PULMONARY: Chest is clear to auscultation, no wheezing is bilateral crackles no JVD ABDOMEN: Soft, nontender, nondistended, normoactive bowel sounds. No palpable organomegaly. MUSCULOSKELETAL: No joint swelling or deformity. EXTREMITIES: No cyanosis, clubbing, or pedal edema. NEUROLOGICAL: Gross neurological examination did not reveal any focal deficits. SKIN: No rashes. - Labs CBC & Chem 7: 10/01/17 06:36 10/01/17 06:36 Labs: Abnormal Lab Results - Last 24 Hours (Table) 09/30/17 10/01/17 10/01/17 Range/Units 20:47 01:58 06:36 Hgb 10.9 L (11.4-16.0) gm/dL Hct 33.4 L (34.0-46.0) % Lymphocytes # 0.7 L (1.0-4.8) k/uL Sodium (137-145) mmol/L BUN (7-17) mg/dL Glucose (74-99) mg/dL POC Glucose (mg/dL) 172 H 65 L (75-99) mg/dL 10/01/17 10/01/17 10/01/17 Range/Units 06:36 07:25 07:44 Hgb (11.4-16.0) gm/dL Hct (34.0-46.0) % Lymphocytes # (1.0-4.8) k/uL Sodium 136 L (137-145) mmol/L BUN 29 H (7-17) mg/dL Glucose 60 L (74-99) mg/dL POC Glucose (mg/dL) 58 L 74 L (75-99) mg/dL 10/01/17 10/01/17 Range/Units 11:42 17:07 Hgb (11.4-16.0) gm/dL Hct (34.0-46.0) % Lymphocytes # (1.0-4.8) k/uL Sodium (137-145) mmol/L BUN (7-17) mg/dL Glucose (74-99) mg/dL POC Glucose (mg/dL) 157 H 123 H (75-99) mg/dL Microbiology - Last 24 Hours (Table) 09/29/17 16:23 Blood Culture - Preliminary Blood No Growth after 24 hours Assessment and Plan Assessment: -Sepsis secondary to influenza A lung infection. -Elevated troponin: Secondary to sepsis minimal elevation noncardiac in origin. -Chest pain part of her myalgias noncardiac in nature. -Type 2 diabetes mellitus -Shortness of breath: Secondary to influenza pneumonia. -Hypertension, resume her home medications. -Ruled out congestive heart failure -Hyperlipidemia continue with his statin. plan: Continue on current medication regime,Tamiflu, monitoring. Blood sugars on the lower side and Levemir dose decreased.close monitoring of Accu-Cheks. Follow-up Chest x-ray in a.m.discharge planning in progress for tomorrow. The impression and plan of care has been dictated as directed. : I performed a history and examination of this patient, discussed the same with the dictator. I agree with the dictator's note ,documented as a scribe. Any additional findings or plans will be noted.
[2017-10-01 20:04] LABS: Glucose,Whole Blood 227 mg/dL (75-99)
[2017-10-02 04:14] LABS: Glucose,Whole Blood 171 mg/dL (75-99)
--- NOTE | 2017-10-02 07:22 | XR ---
EXAMINATION TYPE: XR chest 2V DATE OF EXAM: 10/02/2017 COMPARISON: 09/29/2017 INDICATION: Follow-up previous chest x-ray TECHNIQUE: Frontal and lateral views of the chest are obtained. FINDINGS: The heart size is normal. The pulmonary vasculature is somewhat prominent. This is increased from prior study.. No suspicious focal consolidation is evident. IMPRESSION: 1. Clinical correlation recommended for volume overload.
[2017-10-02 07:23] LABS: Basophils % (A) 1 %; Eosinophils # (A) 0.1 k/uL (0-0.7); Eosinophils % (A) 1 %; HCT 35.1 % (34.0-46.0); Lymphocytes # (A) 1.1 k/uL (1.0-4.8); Lymphocytes % (A) 19 %; MCH 28.1 pg (25.0-35.0); MCHC 31.3 g/dL (31.0-37.0); MCV 89.7 fL (80.0-100.0); Mean Platelet Volume 7.7; Monocytes # (A) 0.3 k/uL (0-1.0); Monocytes % (A) 6 %; Neutrophils # (A) 4.1 k/uL (1.3-7.7); Neutrophils % (A) 72 %; Platelet Count 302 k/uL (150-450); RBC 3.92 m/uL (3.80-5.40); RDW 14.9 % (11.5-15.5); WBC 5.7 k/uL (3.8-10.6)
[2017-10-02 07:44] LABS: Anion Gap 7 mmol/L; Blood Urea Nitrogen 34 mg/dL (7-17); Calcium 8.8 mg/dL (8.4-10.2); Carbon Dioxide 28 mmol/L (22-30); Chloride 102 mmol/L (98-107); Glucose 143 mg/dL (74-99); Potassium 4.3 mmol/L (3.5-5.1); Sodium 137 mmol/L (137-145)
[2017-10-02 07:46] LABS: Glucose,Whole Blood 127 mg/dL (75-99)
[2017-10-02] MEDS: IPRATROPIUM-ALBUTEROL 3 ML NEB INHALATION SCH ×4 (08:25→19:45)
[2017-10-02] MEDS: INSULIN ASPART 100 UNIT/ML 1 ML 10 ML VIAL SQ SCH ×7 (08:33→21:42)
[2017-10-02] MEDS: METOPROLOL TARTRATE 50 MG TAB PO SCH ×2 (08:34→21:50)
[2017-10-02] MEDS: ATORVASTATIN 40 MG TAB PO SCH (08:34)
[2017-10-02] MEDS: HYDROCHLOROTHIAZIDE 25 MG TAB PO SCH (08:34)
[2017-10-02] MEDS: LOSARTAN 50 MG TAB PO SCH (08:34)
[2017-10-02] MEDS: ASPIRIN 81 MG PO SCH (08:34)
[2017-10-02] MEDS: INSULIN DETEMIR 100 UNIT/ML 10 ML VIAL SQ SCH ×2 (08:35→21:51)
[2017-10-02] MEDS: OSELTAMIVIR 60 MG/10 ML ORAL SYRINGE PO SCH ×2 (10:49→21:50)
[2017-10-02 12:06] LABS: Glucose,Whole Blood 157 mg/dL (75-99)
[2017-10-02] MEDS ORDERED: FUROSEMIDE 10 MG/ML 4 ML VIAL IV STA (13:15)
--- NOTE | 2017-10-02 13:15 | P.PN ---
Subjective Progress Note Date: 10/02/17 Mrs Gomes is an 81-year-old female. Past medical history significant for hypertension, diabetes and dyslipidemia. She is currently admitted to the hospital and being treated for influenza A. She is being seen today in follow-up from an initial consultation for mild elevation of troponin that was deemed to be secondary to a Type 2 event. Today she is seen sitting up in bed receiving a breathing treatment. She denies symptoms of chest pain, dizziness, palpitations, diaphoresis, fever/chills or nausea/vomiting. Echocardiogram obtained reveals preserved LV function with EF 55-60%, mildly dilated LA, mild aortic valve sclerosis, mild AR, and trace MR and TR. Telemetry tracings reveal ventricular bigeminy which has been going on throughout intermittently. Laboratory data has been reviewed, hemoglobin 11, leaflets 302, potassium 4.3, magnesium 2.3. Repeat chest xray this morning reveals worsening pulmonary vascular congestion. Objective - Vital Signs Vital signs: Vital Signs Temp 98.7 F 10/02/17 07:00 Pulse 68 10/02/17 11:47 Resp 16 10/02/17 07:00 BP 146/61 10/02/17 07:00 Pulse Ox 91 L 10/02/17 07:00 Intake & Output 10/01/17 10/02/17 10/02/17 18:59 06:59 18:59 Weight 105.1 kg 104.5 kg Other: Voiding Method Toilet Toilet # Voids 2 3 - Exam Blood pressure 146/61 heart rate 76 afebrile GENERAL: Well-appearing, well-nourished and in no acute distress. NECK: Supple without JVD or thyromegaly. LUNGS: Rhonchi throughout on expiration with faint wheezes and fine bibasilar rales. Respiration equal and unlabored. HEART: Irregular rate and rhythm without murmurs, rubs or gallops. S1 and S2 heard. Distant. EXTREMITIES: Normal range of motion, 1+ pitting b/l lower extremity edema. No clubbing or cyanosis. Peripheral pulses intact. - Labs CBC & Chem 7: 10/02/17 07:00 10/02/17 07:00 Labs: Abnormal Lab Results - Last 24 Hours (Table) 10/01/17 10/01/17 10/02/17 Range/Units 17:07 20:02 04:13 Hgb (11.4-16.0) gm/dL BUN (7-17) mg/dL Creatinine (0.52-1.04) mg/dL Glucose (74-99) mg/dL POC Glucose (mg/dL) 123 H 227 H 171 H (75-99) mg/dL 10/02/17 10/02/17 10/02/17 Range/Units 07:00 07:00 07:38 Hgb 11.0 L (11.4-16.0) gm/dL BUN 34 H (7-17) mg/dL Creatinine 1.05 H (0.52-1.04) mg/dL Glucose 143 H (74-99) mg/dL POC Glucose (mg/dL) 127 H (75-99) mg/dL 10/02/17 Range/Units 11:50 Hgb (11.4-16.0) gm/dL BUN (7-17) mg/dL Creatinine (0.52-1.04) mg/dL Glucose (74-99) mg/dL POC Glucose (mg/dL) 157 H (75-99) mg/dL Microbiology - Last 24 Hours (Table) 09/29/17 16:23 Blood Culture - Preliminary Blood No Growth after 48 hours Assessment and Plan Assessment: ASSESSMENT 1. Influenza A 2. Mild troponin elevation representing a Type 2 event secondary to sepsis 3. Ventricular bigeminy, may be secondary to influenza 4. History of hypertension 5. Dyslipidemia PLAN Magnesium level was checked and came in to be normal. Lasix IV 40 mg x1. Continue with beta elham as was previously ordered. We will continue to follow with her. The above impression and plan of care have been discussed and directed by the signing physician. Ana Cifuentes, nurse practitioner, acting as scribe for signing physician.
[2017-10-02 16:55] LABS: Glucose,Whole Blood 157 mg/dL (75-99)
--- NOTE | 2017-10-02 17:19 | P.PN ---
Subjective Progress Note Date: 10/02/17 Progress note being dictated for Dr. Rodríguez interval history:81-year-old female presents for evaluation of cough and dyspnea. Patient has had symptoms for approximately 2-3 days. She has had diffuse body aches and myalgias. Denies any abdominal pain. Denies chest pain. Patient has had rhinorrhea. Cough is dry in nature. Patient complains of fever and chills. She has had nausea and dry heaving, no significant vomiting. Past medical history diabetes, she states her blood sugar has been running high but she has not been able to eat anything for the past several days and has not taken her insulin. No history of COPD or heart failure. Patient is found to have influenza for which patient was started on Tamiflu, chest x-ray showing diffuse infiltrate probably secondary to noncardiogenic pulmonary edema and inflammatory reaction to influenza a cardiogram showed normal ejection fraction and collapsible IVC. Patient was given a dose of Lasix from cardiology perspective patient is minimally elevated troponin secondary to sepsis from influenza no further cardiac intervention is being contemplated her anticipated at this time. Patient will be transferred out of ICU will not need IV heparin. Patient will be monitored overnight if she is feeling better patient will be discharged tomorrow. Patient has a constant 5-6 but and chest pain is noncardiac not associated with nausea, diaphoresis patient does have significant generalized body aches Review of Systems REVIEW OF SYSTEMS: CONSTITUTIONAL: No fever, no malaise, no fatigue. HEENT: No recent visual problems or hearing problems. Denied any sore throat. CARDIOVASCULAR: No orthopnea, PND, no palpitations, no syncope. PULMONARY: No shortness of breath, no cough, no hemoptysis. GASTROINTESTINAL: No diarrhea, no nausea, no vomiting, no abdominal pain. Normoactive bowel sounds. NEUROLOGICAL: No headaches, no weakness, no numbness. HEMATOLOGICAL: Denies any bleeding or petechiae. GENITOURINARY: Denies any burning micturition, frequency, or urgency. MUSCULOSKELETAL/RHEUMATOLOGICAL: Denies any joint pain, swelling, or any muscle pain. ENDOCRINE: Denies any polyuria or polydipsia. The rest of the 14-point review of systems is negative. 10/01/2017 Feels tired, ambulating within room to BR, strength and breathing improving. Good diet intake consuming 50-75% with no nausea vomiting or diarrhea.afebrile, T-max 100.3.preliminary cultures negative at 24 hours.denies chest pain, palpitations or increasing shortness of breath. 10/02/2017 complains of fatigue states not yet ready for discharge home. Diet intake improving. Blood sugars controlled. Afebrile. Preliminary blood cultures negative at 48 hours. Maintaining O2 sats of 96% on room air. Denies any chest pain palpitations or increasing shortness of breath. Objective - Vital Signs Vital signs: Vital Signs Temp 98 F 10/02/17 15:00 Pulse 72 10/02/17 15:53 Resp 16 10/02/17 15:00 BP 114/53 10/02/17 15:00 Pulse Ox 96 10/02/17 15:00 Intake & Output 10/01/17 10/02/17 10/02/17 18:59 06:59 18:59 Weight 105.1 kg 104.5 kg Other: Voiding Method Toilet Toilet # Voids 2 3 3 - Exam GENERAL: The patient is alert and oriented x3, no acute distress, tired appearing HEENT: Pupils are round and equally reacting to light. EOMI. No scleral icterus. No conjunctival pallor. Normocephalic, atraumatic. No pharyngeal erythema. No thyromegaly. Oral mucosa moist.no JVD CARDIOVASCULAR: S1 and S2 present. No murmurs, rubs, or gallops. PULMONARY: Chest is clear to auscultation, no wheezing, bilateral crackles ABDOMEN: Soft, nontender, nondistended, normoactive bowel sounds. No palpable organomegaly. MUSCULOSKELETAL: No joint swelling or deformity. EXTREMITIES: No cyanosis, clubbing, or pedal edema. NEUROLOGICAL: Gross neurological examination did not reveal any focal deficits. SKIN: No rashes. - Labs CBC & Chem 7: 10/02/17 07:00 10/02/17 07:00 Labs: Abnormal Lab Results - Last 24 Hours (Table) 10/01/17 10/02/17 10/02/17 Range/Units 20:02 04:13 07:00 Hgb 11.0 L (11.4-16.0) gm/dL BUN (7-17) mg/dL Creatinine (0.52-1.04) mg/dL Glucose (74-99) mg/dL POC Glucose (mg/dL) 227 H 171 H (75-99) mg/dL 10/02/17 10/02/17 10/02/17 Range/Units 07:00 07:38 11:50 Hgb (11.4-16.0) gm/dL BUN 34 H (7-17) mg/dL Creatinine 1.05 H (0.52-1.04) mg/dL Glucose 143 H (74-99) mg/dL POC Glucose (mg/dL) 127 H 157 H (75-99) mg/dL 10/02/17 Range/Units 16:48 Hgb (11.4-16.0) gm/dL BUN (7-17) mg/dL Creatinine (0.52-1.04) mg/dL Glucose (74-99) mg/dL POC Glucose (mg/dL) 157 H (75-99) mg/dL Microbiology - Last 24 Hours (Table) 09/29/17 16:23 Blood Culture - Preliminary Blood No Growth after 48 hours Assessment and Plan Assessment: -Sepsis secondary to influenza A lung infection. -Elevated troponin: Secondary to sepsis minimal elevation noncardiac in origin. -Chest pain part of her myalgias noncardiac in nature. -Type 2 diabetes mellitus -Shortness of breath: Secondary to influenza pneumonia. -Hypertension, resume her home medications. -Ruled out congestive heart failure -Hyperlipidemia continue with his statin. plan: Continue on current medication regime,Tamiflu, monitoring. Increase ambulation as tolerated. Aggressive pulmonary toileting. Evaluated by PT/OT and discharge home recommended. Discharge planning in progress for tomorrow. The impression and plan of care has been dictated as directed. : I performed a history and examination of this patient, discussed the same with the dictator. I agree with the dictator's note ,documented as a scribe. Any additional findings or plans will be noted.
[2017-10-02 20:54] LABS: Glucose,Whole Blood 207 mg/dL (75-99)
[2017-10-02 22:30] VITALS: RESP 18
[2017-10-03 01:51] LABS: Glucose,Whole Blood 143 mg/dL (75-99)
[2017-10-03 06:57] LABS: Basophils % (A) 1 %; Eosinophils # (A) 0.1 k/uL (0-0.7); Eosinophils % (A) 2 %; HCT 34.5 % (34.0-46.0); Lymphocytes # (A) 1.3 k/uL (1.0-4.8); Lymphocytes % (A) 21 %; MCH 27.5 pg (25.0-35.0); MCHC 31.8 g/dL (31.0-37.0); MCV 86.4 fL (80.0-100.0); Monocytes # (A) 0.4 k/uL (0-1.0); Monocytes % (A) 6 %; Neutrophils # (A) 4.4 k/uL (1.3-7.7); Neutrophils % (A) 68 %; Platelet Count 324 k/uL (150-450); RBC 3.99 m/uL (3.80-5.40); RDW 13.4 % (11.5-15.5); WBC 6.5 k/uL (3.8-10.6)
[2017-10-03] MEDS: IPRATROPIUM-ALBUTEROL 3 ML NEB INHALATION SCH ×3 (07:25→15:29)
[2017-10-03 07:48] LABS: Glucose,Whole Blood 100 mg/dL (75-99)
[2017-10-03] MEDS: INSULIN ASPART 100 UNIT/ML 1 ML 10 ML VIAL SQ SCH ×4 (07:56→13:15)
[2017-10-03] MEDS: METOPROLOL TARTRATE 50 MG TAB PO SCH (07:58)
[2017-10-03] MEDS: ASPIRIN 81 MG PO SCH (07:58)
[2017-10-03] MEDS: HYDROCHLOROTHIAZIDE 25 MG TAB PO SCH (07:58)
[2017-10-03] MEDS: ATORVASTATIN 40 MG TAB PO SCH (07:59)
[2017-10-03] MEDS: LOSARTAN 50 MG TAB PO SCH (07:59)
[2017-10-03] MEDS: INSULIN DETEMIR 100 UNIT/ML 10 ML VIAL SQ SCH (07:59)
[2017-10-03] MEDS ORDERED: FUROSEMIDE 10 MG/ML 4 ML VIAL IV STA (09:46)
[2017-10-03] MEDS: OSELTAMIVIR 60 MG/10 ML ORAL SYRINGE PO SCH (09:48)
[2017-10-03 11:31] VITALS: BMI 35.9
[2017-10-03 11:49] LABS: Glucose,Whole Blood 168 mg/dL (75-99)
[2017-10-03 15:55] VITALS: BP 135/53; PULSE 42; TEMP 98.8
--- NOTE | 2017-10-03 16:40 | P.DS ---
Providers Date of admission: 09/29/17 18:05 Expected date of discharge: 10/03/17 Attending physician: Angélica Rodríguez Consults: 09/29/17 17:58 Consult Physician Urgent Consulting Provider: Casa Carr Consult Reason/Comments: EKG changes, new onset heart failure, influenza Do you want consulting provider notified?: Yes Primary care physician: Marylou Flynn Hospital Course: Final Fiagnoses: Assessment: -Sepsis secondary to influenza A lung infection. -Elevated troponin: Secondary to sepsis minimal elevation noncardiac in origin. -Chest pain part of her myalgias noncardiac in nature. -Type 2 diabetes mellitus -Shortness of breath: Secondary to influenza pneumonia. -Hypertension, resume her home medications. -Ruled out congestive heart failure -Hyperlipidemia continue with his statin. -Fluid Overload, Probable CHF, diastolic dysfunction, EF 55-60% with possible mild exacerabation. Hospital course:81-year-old female presents for evaluation of cough and dyspnea. Patient has had symptoms for approximately 2-3 days. She has had diffuse body aches and myalgias. Denied abdominal pain, chest pain. Patient has had rhinorrhea with dry cough, fever ,chills, nausea and dry heaving, no significant vomiting. Past medical history diabetes, she states her blood sugar has been running high but she has not been able to eat anything for the past several days and has not taken her insulin. No history of COPD or heart failure. Evaluated by cardiology. Patient is found to have influenza for which patient was started on Tamiflu, chest x-ray showing diffuse infiltrate probably secondary to noncardiogenic pulmonary edema and inflammatory reaction to influenza a cardiogram showed normal ejection fraction and collapsible IVC. Patient was given a dose of Lasix from cardiology perspective patient is minimally elevated troponin secondary to sepsis from influenza no further cardiac intervention is being contemplated her anticipated at this time. Follow-up chest x-ray reporting prominent pulmonary vasculature, increased from prior study without suspicious focal evident consolidation. Hydrochlorothiazide discontinued and patient placed on Lasix. Significant clinical improvement.Cleared by the cardiology for discharge. Patient is being discharged home in a stable condition with guarded prognosis. PHYSICAL EXAM: VSS, CARDIOVASCULAR: S1 and S2 present. No murmurs, rubs, or gallops.PULMONARY: Chest is clear to auscultation, no wheezing, bilateral crackles.ABDOMEN: Soft, nontender, nondistended, normoactive bowel sounds. NEUROLOGICAL: Gross neurological examination did not reveal any focal deficits. Microbiology 09/29/17 16:23 Blood Blood Culture - Preliminary No Growth after 72 hours The impression and plan of care has been dictated as directed. : I performed a history and examination of this patient, discussed the same with the dictator. I agree with the dictator's note ,documented as a scribe. Any additional findings or plans will be noted. Time taken: 35 minutes Patient Condition at Discharge: Stable Plan - Discharge Summary Discharge Rx Participant: Yes New Discharge Prescriptions: New Aspirin 81 mg PO DAILY chew Atorvastatin [Lipitor] 40 mg PO DAILY #30 tab Metoprolol Tartrate [Lopressor] 50 mg PO BID #60 tab Oseltamivir 6Mg/ml Oral Susp [Tamiflu] 30 mg PO Q12HR #4 oral.syrg Acetaminophen Tab [Tylenol] 650 mg PO Q6HR PRN tab PRN Reason: Mild Pain Or Fever > 100.5 Insulin Aspart [NovoLOG (formulary)] 10 unit SQ AC-TID vial Albuterol Sulfate [Proair Hfa] 2 puff INHALATION Q6HR #1 inhaler Furosemide [Lasix] 40 mg PO DAILY #30 tablet Continue Losartan [Cozaar] 50 mg PO DAILY Cholecalciferol [Vitamin D3] 1,000 unit PO DAILY Alendronate Sodium [Fosamax] 70 mg PO MIJARES Changed Insulin Detemir [Levemir] 30 unit SQ BID #0 Discontinued amLODIPine [Norvasc] 5 mg PO BID Metoprolol Tartrate [Lopressor] 50 mg PO DAILY INSULIN LISPRO (humaLOG) [humaLOG] 16 - 20 units SQ AC-TID Discharge Medication List Alendronate Sodium [Fosamax] 70 mg PO MIJARES 09/29/17 [History] Cholecalciferol [Vitamin D3] 1,000 unit PO DAILY 09/29/17 [History] Losartan [Cozaar] 50 mg PO DAILY 09/29/17 [History] Acetaminophen Tab [Tylenol] 650 mg PO Q6HR PRN tab 10/03/17 [Rx] Albuterol Sulfate [Proair Hfa] 2 puff INHALATION Q6HR #1 inhaler 10/03/17 [Rx] Aspirin 81 mg PO DAILY chew 10/03/17 [Rx] Atorvastatin [Lipitor] 40 mg PO DAILY #30 tab 10/03/17 [Rx] Furosemide [Lasix] 40 mg PO DAILY #30 tablet 10/03/17 [Rx] Insulin Aspart [NovoLOG (formulary)] 10 unit SQ AC-TID vial 10/03/17 [Rx] Insulin Detemir [Levemir] 30 unit SQ BID #0 10/03/17 [Rx] Metoprolol Tartrate [Lopressor] 50 mg PO BID #60 tab 10/03/17 [Rx] Oseltamivir 6Mg/ml Oral Susp [Tamiflu] 30 mg PO Q12HR #4 oral.syrg 10/03/17 [Rx] Follow up Appointment(s)/Referral(s): [facility] [place], [NON-STAFF] - 1 Week Marylou Flynn MD [Primary Care Provider] - 3 Days Ambulatory/Diagnostic Orders: Complete Blood Count w/diff [LAB.AMB] Time Frame: 3 Days, Location: Determined By Patient Patient Instructions/Handouts: Metoprolol (By mouth), Atorvastatin (By mouth), Oseltamivir (By mouth), Heart Failure (DC), Influenza (DC) Activity/Diet/Wound Care/Special Instructions: confirm cardiology F/U apt. prior to dc DIet: Cardiac, CHF DIet,PEBBLES, COnsist. carb. Accu cheks achs, maintain log, take to f/u visit for aleja abreu accu chenaif achs activity: limited till F/U
== END 2017-10-03 17:10 | disposition home or self-care (01) | DRG 871 ==
LOC: EC 15:48 → 6SEL 18:05 → 6ICU 21:21 → 5MS5E 09-30 20:58
PROVIDERS: ADMIT Hospitalist; ATTEND Hospitalist
DX: A41.89 Other specified sepsis (principal); J11.00 Influenza due to unidentified influenza virus with unspecified type of pneumonia; I21.A1 Myocardial infarction type 2; I50.33 Acute on chronic diastolic (congestive) heart failure; E11.65 Type 2 diabetes mellitus with hyperglycemia; I11.0 Hypertensive heart disease with heart failure; I08.3 Combined rheumatic disorders of mitral, aortic and tricuspid valves; R79.1 Abnormal coagulation profile; M79.1 Myalgia; R11.0 Nausea; E78.5 Hyperlipidemia, unspecified; Z88.6 Allergy status to analgesic agent; Z88.2 Allergy status to sulfonamides; Z79.899 Other long term (current) drug therapy; Z79.4 Long term (current) use of insulin; Z79.83 Long term (current) use of bisphosphonates; Z90.710 Acquired absence of both cervix and uterus; Z90.89 Acquired absence of other organs
CPT/HCPCS: 36415; 71046; 80048; 80053; 82550; 82553; 83605; 83735; 83880; 84484; 85025; 85610; 85730; 87040; 87502; 93005; 93306; 94640; 96365; 96366; 96375; 96376; 99291